=== PATIENT | female | born 1990 | race Caucasian/White ===

== ENCOUNTER → 2019-07-20 | Outpatient (REF) | payer OTHER ==
[~2019-07-20] MED LIST: NORC1TAB7 PO; SYNT88TA2 PO
== END ==
LOC: M LAB REF 18:46
PROVIDERS: ATTEND Otolaryngology
DX: D10.0 Benign neoplasm of lip (principal)

== ENCOUNTER 2019-07-21 04:14 | Emergency (ER) | payer OTHER ==
[~2019-07-21] VITALS: Ht 157.5 cm; Wt 87.3 kg
[2019-07-21] MEDS ORDERED: SYNT88TA2 PO (04:22)
[2019-07-21] MEDS ORDERED: NORCO, ANEXSIA 5/325MG TABLET (HYDROcodone/ACETAMINOPHEN) PO ONE (08:00)
[2019-07-21] MEDS ORDERED: GABAPENTIN 300 MG CAP PO ONE (10:30)
[2019-07-21] MEDS ORDERED: NORC1TAB7 PO (12:07)
[2019-07-21 12:20] VITALS: BP 131/82
== END 2019-07-21 12:25 | disposition home or self-care (01) ==
LOC: M ED 04:14
DX: G89.18 Other acute postprocedural pain (principal); E06.3 Autoimmune thyroiditis